=== PATIENT | female | born 1955 | race Caucasian/White ===

== ENCOUNTER → 2018-06-12 07:57 | Outpatient (CLI) | payer BC | END | disposition home or self-care (01) | LOC: D.HCCARDIO 07:57 | DX: I20.9 Angina pectoris, unspecified (principal) ==

== ENCOUNTER → 2018-07-01 15:46 | Outpatient (CLI) | payer BC ==
[~2018-07-01] VITALS: Ht 165.1 cm; Wt 102.3 kg
--- NOTE | ~2018-07-01 | HEMODYNAMI ---
PATIENT:CRISTAL JEFFERS MEDICAL RECORD: [id number] : 55 LOCATION:[facility] ADMISSION DATE: 07/01/18 Generatedon:07/01/201813:21 Patient name: CRISTAL JEFFERS Patient #: [id number] SSN: : Date of study: 07/01/2018 Page: Of Hemodynamic Procedure Report Patient Data Patient Demographics Procedure consent was obtained First Name: CRISTAL Gender: Female Last Name: ZEYAD : 1955 Middle Initial: J Age: 63 year(s) Patient #: [id number] Race: Ethnicity: or Additional ID: [id number] Contact details Address: [address] [place] [address] State: [place] City: [place] Zip code: [address] Past Medical History Allergies Allergen Reaction Date Comments Reported Other allergy 07/01/2018 PCN Admission Admission Data Admission Date: 07/01/2018 Admission Time: 13:00 Height (in.): 65 BSA: 2.08 (m2) Height (cm.): 165.1 BMI: 37.44 (kg/m2) Weight (lbs.): 225 Weight (kg.): 102.06 Lab Results Lab Result Date: 07/01/2018 Lab Result Time: 0:00 Biochemistry Name Units Result Min Max BUN mg/dl 17 --(---*)-- 7 18 Creatinine mg/dl 0.7 --(*---)-- 0.6 1.3 CBC Name Units Result Min Max Hemoglobin g/dl 15.6 --(--*-)-- 13.5 17.5 Procedure Procedure Types Cath Procedure Diagnostic Procedure [facility] w/Coronaries Procedure Description Procedure Date Procedure Date: 07/01/2018 Procedure Start Time: 13:08 Procedure End Time: 13:21 Procedure Staff Name Function Robbie Sterling MD Performing Physician Ro Schuler RT Monitor Rossana Coyne RT Scrub Juancarlos Dawkins RN Nurse Procedure Data Cath Procedure Fluoroscopy Diagnostic fluoroscopy Total fluoroscopy Time: 2.5 time: 2.5 min min Diagnostic fluoroscopy Total fluoroscopy dose: 451 dose: 451 mGy mGy Contrast Material Contrast Material Type Amount (ml) Isovue 300 48 Entry Location Entry Primary Successful Side Size Upsize Upsize Entry Closure Hernandez ccessful Closure Location (Fr) 1 (Fr) 2 (Fr) Remarks Device Remarks Radial Right 6 Fr Mechanical TR artery Short Compression Estimated blood loss: 10 ml Diagnostic catheters Device Type Used For End Catheter Placement DIAGNOSTIC Porcupine 110cm 5 Procedure Fr catheter ([id number]) Procedure Complications No complications Procedure Medications Medication Administration Route Dosage 0.9% NaCl I.V. 100 ml/hr Oxygen etCO2 Nasal cannula 2 l/min Heparin Flush Bag added to field 2 bags (1000units/500ml NS) Lidocaine 2% added to field 20 Radial Cocktail added to field 1 syringe (Verapomil 2mg/Nitro 400mcg/Heparin 1500units) Benadryl I.V. 50 mg Versed I.V. 2 mg Fentanyl I.V. 100 mcg Versed I.V. 2 mg Radial Cocktail I.A. 1 syringe (Verapomil 2mg/Nitro 400mcg/Heparin 1500units) Hemodynamics Rest BSA: 2.08 (m2) HGB: 15.6 (g/dl) O2 Consumption: Estimated: 189.87 (ml/min) O2 Co nsumption indexed: Estimated:91.28 (ml/min/m) Heart Rate: 63 (bpm) Pressure Samples Time Site Value (mmHg) Purpose Heart Use Rate(bpm) 13:12 LV 128/29,29 Snapshot 100 Gradients Valve Time Site Site Mean SEP/DFP Peak To Heart Use 1 2 (mmHg) (sec/min) Peak Rate (mmHg) (bpm) Aortic 13:12 LV AO 106 Snapshots Pre Cath Intra NCS Post Cath Vital Signs Time Heart Resp SPO2 etCO2 NIBP (mmHg) Rhythm Pain Sedation Rate (ipm) (%) (mmHg) Status Level (bpm) 12:58:20 65 10 95 0 136/75(98) NSR 0 (11) 10(A) , No pain 13:02:25 67 15 94 23.4 126/80(112) NSR 0 (11) 10(A) , No pain 13:06:31 74 16 93 46.1 140/95(115) NSR 0 (11) 10(A) , No pain 13:10:37 87 17 93 48.4 124/91(119) NSR 0 (11) 9(A) , No pain 13:15:53 89 18 92 48.4 126/87(106) NSR 0 (11) 9(A) , No pain 13:20:02 80 9 95 47.7 129/85(108) NSR 0 (11) 9(A) , No pain Medications Time Medication Route Dose Verified Delivered Reason Notes Effectiveness by by 12:55:01 0.9% NaCl I.V. 100 Juancarlos Juancarlos Per ml/hr Juancho Dawkins physician RN RN 12:55:11 Oxygen etCO2 2 l/min Juancarlos Juancarlos Per Nasal Juanhco Dawkins physician cannula RN RN 12:55:22 Lidocaine 2% added 20ml Juancarlos Juancarlos for local to vial Lorigan Regiigan anesthetic field RN RN 12:55:22 Heparin Flush added 2 bags Juancarlos Juancarlos used for Bag to Lorhamlet Dawkins procedure (1000units/500ml field RN RN NS) 12:55:34 Radial Cocktail added 1 Juancarlos Juancarlos used for (Verapomil to syringe Lorigan Juancho procedure 2mg/Nitro RN RN 400mcg/Heparin 1500units) 12:55:44 Benadryl I.V. 50 mg Juancarlos Juancarlos Per Juancho rivero RN RN 13:03:09 Versed I.V. 2 mg Juancarlos Juancarlos for sedation Juancho Dawkins RN RN 13:03:20 Fentanyl I.V. 100 mcg Juancarlos Juancarlos for sedation Juancho Dawkins RN RN 13:05:30 Versed I.V. 2 mg Juancarlos Juancarlos for sedation Juancho Dawkins RN RN 13:05:36 Radial Cocktail I.A. 1 Juancarlos Robbie for (Verapomil syringe Juancho cody 2mg/Nitro RN 400mcg/Heparin 1500units) Procedure Log Time Note 12:37:59 Informed consent obtained and on chart 12:38:24 Juancarlos Dawkins RN sent for patient. Start room use. 12:38:25 Time tracking: Regular hours (M-F 7:00 - 5:00) 12:38:30 Plan of Care:Hemodynamics will remain stable., Cardiac rhythm will remain stable., Comfort level will be maintained., Respiratory function will remain adequate., Patient/ family verbilizes understanding of procedure., Procedure tolerated without complication., Recovers from procedure without complications.. 12:43:14 Patient received from Pre/Post Procedure Room to CCL 2 Alert and oriented. Tansferred to table in Supine position. 12:43:16 Warm blankets applied, and lenin hugger turned on for patient comfort. 12:43:16 Correct patient and procedure confirmed by team. 12:43:17 ECG and BP/O2 sat monitors applied to patient. 12:55:01 0.9% NaCl 100 ml/hr I.V. was administered by Juancarlos Dawkins RN; Per physician; 12:55:11 Oxygen 2 l/min etCO2 Nasal cannula was administered by Juancarlos Dawkins RN; Per physician; 12:55:22 Lidocaine 2% 20ml vial added to field was administered by Juancarlos Dawkins RN; for local anesthetic; 12:55:22 Heparin Flush Bag (1000units/500ml NS) 2 bags added to field was administered by Juancarlos Dawkins RN; used for procedure; 12:55:34 Radial Cocktail (Verapomil 2mg/Nitro 400mcg/Heparin 1500units) 1 syringe added to field was administered by Juancarlos Dawkins RN; used for procedure; 12:55:44 Benadryl 50 mg I.V. was administered by Juancarlos Dawkins RN; Per physician; 12:57:17 Vital chart was started 12:57:20 Baseline sample Acquired. 12:57:27 Rhythm: sinus rhythm 12:57:29 Full Disclosure recording started 12:57:41 H&P Date Dictated: 07/01/2018 Within 30 days and on chart., H&P Addendum completed by physician on day of procedure. (MUST COMPLETE FOR ALL OUTPATIENTS). 12:57:43 Pre-procedure instructions explained to patient. 12:57:46 Family in waiting room. 12:57:47 Patient NPO since Midnight. 12:58:13 Patient allergic to Other allergyPCN 12:58:16 Is the patient allergic to Iodine/contrast media? No. 12:58:20 Was the patient premedicated? Yes 12:58:21 Is patient on blood thinner?No 12:58:34 Patient diabetic? No. 12:58:38 Snore? Yes 12:58:39 Sleep apnea? No 12:58:45 Airway obstruction? Yes Asthma 12:58:49 Patient pain scale 0/10 ?. 12:58:57 IV patent on arrival in left forearm with 0.9% NaCl at [facility]. 13:00:55 Lab Result : Hemoglobin 15.6 g/dl 13:00:55 Lab Result : Creatinine 0.7 mg/dl 13:00:55 Lab Result : BUN 17 mg/dl 13:01:11 Patient Weight : 225 lbs 13:01:27 Patient Height : 65 inches 13:01:35 Lab results completed and on chart. 13:01:39 Right Radial & Right Groin area was prepped with chlora-prep and draped in sterile fashion 13:01:40 Alarms reviewed by R. N. 13:01:40 Sharps counted by scrub and verified by R.N. 13:01:44 Physician arrived 13:01:44 --------ALL STOP TIME OUT------ 13:01:45 Final Timeout: patient, procedure, and site verified with staff and physician. All members of the team are in agreement. 13:01:47 Right Radial & Right Groin site verified by team. 13:01:50 Physical assessment completed. ASA score P 2 - A patient with mild systemic disease as per Robbie Sterling MD. 13:01:54 Sedation plan: IV Moderate Sedation Medication:Versed, Fentanyl 13:01:58 Use device set Radial Dx or PCI 13:03:09 Versed 2 mg I.V. was administered by Juancarlos Dawkins RN; for sedation; 13:03:20 Fentanyl 100 mcg I.V. was administered by Juancarlos Dawkins RN; for sedation; 13:04:19 ACIST Syringe (74580) opened to sterile field. 13:04:19 Medline Cath Pack ([id number]) opened to sterile field. 13:04:20 Bag Decanter (2001S) opened to sterile field. 13:04:21 DIAGNOSTIC WIRE .035 260cm J wire (294363) opened to sterile field. 13:04:21 ACIST Hand Control (36867) opened to sterile field. 13:04:23 ACIST Manifold (47556) opened to sterile field. 13:04:23 Tegaderm 4 x 4 (1626W) opened to sterile field. 13:04:24 MBrace Wrist Support ([id number]) opened to sterile field. 13:04:28 SHEATH 6FR Slender (81-3214) opened to sterile field. 13:05:30 Versed 2 mg I.V. was administered by Juancarlos Dawkins RN; for sedation; 13:05:36 Radial Cocktail (Verapomil 2mg/Nitro 400mcg/Heparin 1500units) 1 syringe I.A. was administered by Robbie Sterling MD; for vasodilation; 13:06:52 Procedure started. 13:08:33 Local anesthetic to right radial artery with Lidocaine 2% by Robbie Sterling MD.INITIAL ACCESS ONLY 13:09:26 A 6 Fr Short sheath was inserted into the Right Radial artery 13:10:48 A DIAGNOSTIC Porcupine 110cm 5 Fr catheter ([id number]) was advanced over the wire and used for Procedure. 13:12:02 LV angiography performed. 13:12:49 EF : 60 % 13:12:51 Catheter removed. 13:13:08 RCA angiography performed. 13:13:30 LCA angiography performed. 13:14:11 Catheter removed. 13:14:57 Sheath removed intact; hemostasis achieved with Mechanical Compression to the Right Radial artery. 13:15:00 Procedure ended.(Physican Out) 13:19:13 Fluoroscopy time 02.50 minutes. 13:19:17 Fluoroscopy dose: 451 mGy 13:19:17 Flurop Dose total: 451 13:19:22 Contrast amount:Isovue 300 48ml. 13:19:23 Sharps counted by scrub and verified by R.N. 13:19:31 TR band inflated with 13cc of air. 13:19:42 Post right radial artery:stable 13:19:49 TR BAND Standard ([id number]) opened to sterile field. 13:20:09 Post-procedure physical assessment completed. ASA score P 2 - A patient with mild systemic disease as per Robbie Sterling MD. 13:20:12 Post procedure rhythm: unchanged. 13:20:14 Estimated blood loss: 10 ml 13:20:17 Post procedure instruction explained to patient.Patient verbalizes understanding. 13:20:24 Procedure and supply charges have been captured, reviewed, submitted and are correct. 13:20:58 Procedure Complication : No complications 13:21:01 Vital chart was stopped 13:21:02 See physician's report for complete and final results. 13:21:03 Report given to Pre/Post Procedure Room. 13:21:07 Patient transfered to Pre/Post Procedure Room with Stretcher. 13:21:10 Procedure ended. 13:21:10 Full Disclosure recording stopped Device Usage Item Name Manufacture Quantity Catalog Hospital Part Current Minimal Lot# / Number Charge Number Stock Stock Serial# Code ACIST Acist 1 52354 [id number] [id number] [id number] 20 Syringe Medical (56940) Systems Inc Medline Medline 1 [id number] 633662 71940 381812 5 Cath Pack ([id number]) Bag Microtek 1 2001S 871589 35216 869029 5 Decanter Medical Inc. (2001S) DIAGNOSTIC [place] 1 221629 450833 658883 769781 30 WIRE .035 260cm J wire (463407) ACIST Hand Acist 1 98984 991560 709408 033746 5 Control Medical (35361) Systems Inc ACIST Acist 1 45830 104502 173154 457424 5 Manifold Medical (73782) Systems Inc Tegaderm 4 3M 1 1626W 559989 066921 641975 5 x 4 (1626W) MBrace Advanced 1 140-0250-00 683225 64840 074229 5 Wrist Vascular Support Dynamics ([id number]) SHEATH 6FR Terumo 1 [id number] 588064 378301 322839 5 Slender (80-1060) DIAGNOSTIC Terumo 1 40-5013 056455 017276 997730 5 Porcupine 110cm 5 Fr catheter (722367) TR BAND Terumo 1 [id number] 987114 322875 842024 40 Standard ([id number]) Signature Audit Ventress Stage Time Signature Unsigned Intra-Procedure 07/01/2018 Ro Schuler 1:21:52 PM RT(R) Signatures Monitor : Ro Schuler Signature : RT Date : Time : [facility] [address] [place] [address]
[2018-07-01 11:39] LABS: BASOPHILS 0.4 % (0-2); EOSINOPHILS 6.5 % (0-7); HEMOGLOBIN 15.6 g/dL (12-16); IMMATURE GRANULOCYTES 0.3 % (0-5); LYMPHOCYTES 26.2 % (15-50); MCH 31.3 pg (26.0-34.0); MCHC 34.7 g/dL (31.0-37.0); MCV 90.2 fL (80.0-100.0); MEAN PLATELET VOLUME 9.7 fL (7.4-10.4); MONOCYTES 8.6 % (2-11); PLATELET COUNT 376 10x3/uL (130-400); RBC 4.99 10x6/uL (4.00-5.40); RDW 13.2 % (11.5-14.5); WBC 9.8 10x3/uL (4.8-10.8)
[2018-07-01 11:41] VITALS: BP 136/65; Ht 165.1 cm; Wt 102.3 kg
[2018-07-01 11:53] LABS: CALC OSMOLALITY 278 mosm/kg (275-300); CALCIUM 8.9 mg/dL (8.5-10.1); CARBON DIOXIDE 28.5 mmol/L (21.0-32.0); CHLORIDE - SERUM 102 mmol/L (98-107); CREATININE - SERUM 0.7 mg/dL (0.6-1.3); GLUCOSE 110 mg/dL (74-106); POTASSIUM - SERUM 4.3 mmol/L (3.5-5.1); SODIUM 138 mmol/L (136-145); UREA NITROGEN 17 mg/dL (7-18); eGFR NON AFRICAN AMERICAN 90 mL/min (90-120)
[~2018-07-01 15:46] MED LIST: BAYER ASPIRIN325 MG PO; LIPITOR20 MG PO; MOBIC7.5 MG PO; PRINZIDE 20/12.1 TA1 PO
== END | disposition home or self-care (01) ==
LOC: D.CATH 13:00
PROVIDERS: Internal Medicine Cardiovascular Disease
DX: R07.89 Other chest pain (principal); J45.909 Unspecified asthma, uncomplicated; E78.5 Hyperlipidemia, unspecified; Z01.812 Encounter for preprocedural laboratory examination; Z88.0 Allergy status to penicillin